=== PATIENT | female | born 1940 | race African-American/Black ===

== ENCOUNTER 2017-03-19 11:56 | Inpatient (IN) | payer MEDICARE ==
--- NOTE | ~2017-03-19 | EGD ---
EGD REPORT [facility] [address] [place]. [address] NAME: NENA VINCENT : 42 STATUS : ADM IN PAT#: [id number] AGE: 77 ADM/REG DATE : 03/19/17 MR#: [id number] REPORT SERV DATE: 03/22/17 DICTATED BY: SUNDAR AUGUSTINE DATE: 03/22/17 REPORT STATUS : Draft [facility]ANS[facility]ED [facility]: [facility] DATE: 03/22/17 Endoscopy Center Patient Name: Nena Vincent Date of : 1940 Attending MD: SUNDAR AUUGSTINE MD Procedure Date No Time: 03/22/2017 Procedure: Upper EUS Indications: Common bile duct dilation (acquired) seen on MRCP, Suspected mass in pancreas on MRCP Referring MD: RAZA BOWEN Medicines: Monitored Anesthesia Care Complications: No immediate complications. Estimated blood loss: None. Procedure: Pre-Anesthesia Assessment: - ASA Grade Assessment: III - A patient with severe systemic disease. After obtaining informed consent, the endoscope was passed under direct vision. Throughout the procedure, the patient's blood pressure, pulse, and oxygen saturations were monitored continuously. The Endoscope was introduced through the mouth, and advanced to the third part of duodenum. The upper EUS was accomplished without difficulty. The patient tolerated the procedure well. Findings: Endosonographic Finding : There was no sign of significant endosonographic abnormality in the ampulla. No masses were identified. The ampulla was endoscopically normal. There was no sign of significant endosonographic abnormality in the entire pancreas. No pathologic lymphadenopathy, no masses, no cysts, no calcifications, the pancreatic duct was well visualized from ampulla to tail, and while it was prominent and somewhat irregular, the size was 3 mm in maximal dimension and was not technically dilated. Moderate hyperechoic material consistent with sludge was visualized endosonographically in the common bile duct with layering above the level of the cystic duct takeoff. There was no mass causing obstruction. Extensive hyperechoic material consistent with sludge was visualized endosonographically in the gallbladder. No lymphadenopathy seen. Endosonographic imaging of the visualized portion of the liver showed no mass. A limited doppler examination was performed and revealed no significant vascular abnormalities. EGD REPORT [place] [id number] [place]. [address] NAME: NENA VINCENT : 42 STATUS : ADM IN PAT#: [id number] AGE: 77 ADM/REG DATE : 03/19/17 MR#: [id number] REPORT SERV DATE: 03/22/17 DICTATED BY: SUNDAR AUGUSTINE DATE: 03/22/17 REPORT STATUS : Draft TRANSCRIBED BY: [employer] DATE: 03/22/17 Impression: - There was no sign of significant pathology in the ampulla. - There was no sign of significant pathology in the entire pancreas. - Hyperechoic material consistent with sludge was visualized endosonographically in the common bile duct. - Hyperechoic material consistent with sludge was visualized endosonographically in the gallbladder. - There was no mass seen causing obstruction of the CBD or PD. - A limited doppler examination was performed and revealed no significant vascular abnormalities. Recommendation: - [facility] patient to [facility] for [facility]. - Perform an ERCP at the next available appointment. Procedure Code(s): --- Professional --- 23810, Esophagogastroduodenoscopy, flexible, transoral; with endoscopic ultrasound examination, including the esophagus, stomach, and either the duodenum or a surgically altered stomach where the jejunum is examined distal to the anastomosis Diagnosis Code(s): --- Professional --- K83.8, Other specified diseases of biliary tract R93.3, Abnormal findings on diagnostic imaging of other parts of digestive tract CPT copyright 2013 [employer]. All rights reserved. The codes documented in this report are preliminary and upon geodetic surveyor review may be revised to meet current compliance requirements. Sundar Augustine MD SUNDAR AUGUSTINE MD 03/22/2017 3:57 PM This report has been signed electronically. Number of Addenda: 0 Note Initiated On: 03/22/2017 2:46 PM Scope Withdrawal Time 0 hours 0 minutes 0 seconds [address] [place] [address]
--- NOTE | ~2017-03-19 | OP ---
Record Of Operation [facility] [address] [place]. [address] NAME: JEMIMA PASTRANA : 42 STATUS : ADM IN [facility]#: [id number] AGE: 77 ADM/REG DATE : 03/19/17 MR#: [id number] REPORT SERV DATE: 03/23/17 DICTATED BY: SINGH CAPPS DATE: 03/23/17 REPORT STATUS : Draft TRANSCRIBED BY: MODL DATE: 03/23/17 DATE OF PROCEDURE: 03/23/2017 PROCEDURES: ERCP, sphincterotomy, brush cytology, and stent placement. INDICATION: The patient with obstructive jaundice. ENDOSCOPIST: Singh Capps M.D. PREMEDICATION: Given by the anesthesiologist. Please refer to their notes. DESCRIPTION OF PROCEDURE: After obtaining informed consent, the patient was sedated and intubated to protect the airway. Olympus duodenoscope was introduced into the oropharynx, was advanced under visual guidance into the esophagus, stomach, and duodenum. The stomach was very distended, much effort was put into advancing the scope into the second portion of duodenum. Papilla appeared grossly normal. No bile was seen flowing out. Using an Autotome and guidewire, multiple attempts were made to cannulate the common bile duct. However, this failed. After much time spent, decision was made to perform a needle knife sphincterotomy. Needle knife sphincterotomy was performed successfully. Bile was seen flowing out. This was used as indication to use an Autotome to cannulate the common bile duct. This time around, common bile duct was cannulated using the guide wire. Injection of contrast showed markedly dilated common bile duct. No filling defects were noted. In the mid common bile duct, there was a stricture approximately 5 cm long with dilatation proximal to the stricture and dilatation distal to the stricture. The common bile duct proximal to the stricture approximated diameter approximately 1.2 to 1.3 cm. The bile duct distal to the stricture was dilated to approximately 1 cm. At this point, brush cytology was performed, obtaining cells from the stricture. This was followed by balloon obstructive cholangiogram which once again revealed dilated intrahepatic duct, common hepatic duct, proximal common bile duct, a stricture in the mid common bile duct and a slight dilatation distal to the stricture in the distal common bile duct. At this point, decision was made to put a 10-Venezuelan, 9 cm biliary stent across the stricture. The stent was successfully placed and confirmed with fluoroscopic studies. Bile was seen flowing out through the stent into the intestine. HP/MODL Singh Capps M.D. / [id number] CC: MD Kenya Sainz M.D.
--- NOTE | ~2017-03-19 | HP ---
History And Physical [place] [id number] [facility] [place]. [address] NAME: JEMIMA VINCENT : 42 STATUS : ADM IN [facility]#: [id number] AGE: 77 ADM/REG DATE : 03/19/17 MR#: [id number] REPORT SERV DATE: 03/19/17 DICTATED BY: RUTH PERERA DATE: 03/19/17 REPORT STATUS : Draft TRANSCRIBED BY: MODL DATE: 03/19/17 DATE OF ADMISSION: 03/19/2017 REASON FOR ADMISSION: Obstructive jaundice. HISTORY OF PRESENT ILLNESS: Ms. Vincent is a 77-year-old female with a history of diabetes, who presented to her primary care provider's office with a two-week history of itching as well as dark urine and light stools. The patient was found to be jaundice. Liver function enzymes were highly elevated. She had an ultrasound done as an outpatient which was positive for dilated common bile duct, intrahepatic duct. A CT of the abdomen was also done, which revealed a 2 cm cubed mass at the distal bile duct concerning for a neoplasm. We were asked to admit. At admission, the patient denies any abdominal pain. She has noticed, however, a decreased appetite and a 10-pound weight loss. She has had nausea without vomiting and some mild loose stool. The patient denies headache. No chest pain. No leg pain. She does have chronic palpitations. No change from baseline. Glucose have been okay at home. She denies rash, but continues to itch. Has had easy bruising, but no bleeding, no neurological complaints. She has had arthritic pains and occasional shooting pains into her hand. REVIEW OF SYSTEMS: Remainder of the review of systems are negative. PAST MEDICAL HISTORY: As mentioned above. MEDICATIONS: Glipizide, Nexium, Tenormin, and metformin. ALLERGIES: NO ALLERGIES. FAMILY HISTORY: Positive for diabetes. SOCIAL HISTORY: The patient has no tobacco, alcohol, or drug history. PHYSICAL EXAMINATION: VITAL SIGNS: On presentation, blood pressure 156/84, pulse 58, respirations 16, afebrile, saturation 98%. GENERAL: Awake, alert, and oriented x3. HEENT: Very jaundice with significant scleral and conjunctival icterus as well as sublingual icterus. She had moist mucous membranes. Normal oropharynx and no cranial nerve deficits. NECK: Revealed flat jugular veins. No carotid bruit, lymphadenopathy, or goiter. CARDIAC: Regular rate and rhythm. No murmurs, gallops, or rubs. LUNGS: Clear to auscultation bilaterally. Good excursion. ABDOMEN: Nondistended, nontender. Bowel sounds normoactive. There was no organomegaly nor stigmata of chronic liver disease. EXTREMITIES: No cyanosis, clubbing, or edema. Good pulses and capillary refill. Yellow nail beds were noted. History And Physical [address] [address] NAME: JEMIMA VINCENT : 42 STATUS : ADM IN [facility]#: [id number] AGE: 77 ADM/REG DATE : 03/19/17 MR#: [id number] REPORT SERV DATE: 03/19/17 DICTATED BY: RUTH PERERA DATE: 03/19/17 REPORT STATUS : Draft TRANSCRIBED BY: DAVID DATE: 03/19/17 SKIN: Warm and dry. PSYCHIATRIC: She is appropriate. LABORATORY EVALUATION: Sodium 137, potassium 3.7, chloride 106, bicarb 24, BUN 25, creatinine 1.2, glucose 121. LFTs remarkable for total bilirubin of 12.9, alkaline phosphatase 403, ALT 253, AST 166, amylase 132, lipase 344. A CEA was drawn which was negative. CA-19-9 slightly above the upper limit, normal of 74. Ammonia negative. Hepatitis serologies were negative. White count 6000, H and H are 12/37, platelets 304. Imaging was as mentioned above. ASSESSMENT AND PLAN: 1. 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 No evidence of distant lymphadenopathy or metastases were identified on a 4-phase CT. She may be a Whipple candidate even if positive for malignant cells. That said, we are reassured by the normal CEA and low levels of CA-19- 9. GI will be consulted for ERCP with anticipated stenting of the common bile duct as well as endoscopic ultrasound with biopsy to rule out malignancy and arrange a future treatment plan. 2. Type 2 diabetes, currently controlled. Holding glipizide and metformin in the setting of acute liver injury. 3. Elevated blood pressure, history of hypertension. We will follow for now. 4. Weight loss. Certainly concerning for malignancy. ARSEN/DAVID Ruth Perera M.D. / [id number] CC: Evelin Desai M.D.
--- NOTE | ~2017-03-19 | DS ---
Discharge Summary [place] [address] [place]. [address] NAME: JEMIMA PASTRANA : 42 STATUS : DIS IN PAT#: [id number] AGE: 77 ADM/REG DATE : 03/19/17 MR#: [id number] REPORT SERV DATE: 03/26/17 DICTATED BY: JR. LIVINGSTON WILLIAM JOHN DATE: 03/25/17 REPORT STATUS : Draft TRANSCRIBED BY: MODL DATE: 03/25/17 ADMISSION DATE: 03/19/2017 DISCHARGE DATE: 03/25/2017 DISCHARGE DIAGNOSES: Include: 1. 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 2. Non-insulin requiring diabetes mellitus type 2. 3. Hypertension. OPERATIONS, PROCEDURES, AND TREATMENTS: Include: 1. MRCP done 03/21/2017 which showed sharp cut off of the common hepatic duct at the level of the pancreatic head compatible with obstructing mass. Given the dilation of the main pancreatic duct, it is suspected this could represent a primary pancreatic neoplasm. 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 2. Upper endoscopy with endoscopic ultrasound done 03/22/[address] Campos showed no sign of significant endosonographic abnormality of the ampulla. No masses were identified. The ampulla was endoscopically normal. There was no sign of significant endosonographic abnormality in the entirety of the pancreas. No pathologic lymphadenopathy, masses, or calcification. Pancreatic duct was well visualized from the ampulla to the tail. It was prominent and somewhat irregular with 3 mm size in maximal dimension. There is moderate hyperechoic material consistent with sludge in the common bile duct with layering above the level of the cystic duct takeoff. There is no mass causing obstruction. There was extensive hyperechoic material consistent with sludge in the gallbladder. 3. ERCP done by Dr. Capps on 03/23/2017 with sphincterotomy, brush cytology, and stent placement. On the ERCP, there was markedly dilated common bile duct without filling defect. In the mid common bile duct, there was a stricture approximately 5 mm long with dilation proximal to the stricture and dilation distal to the stricture. [place] cytology was performed followed by dilation and stent placement across the stricture. CONSULTING PHYSICIANS: 1. Singh Capps MD. 2. Sundar Campos MD. 3. Kenzie Campuzano MD. DISCHARGE MEDICATIONS: Include: 1. Atenolol 25 mg in the morning, 50 mg at night. 2. Metformin 500 mg twice a day. 3. Glipizide XL 5 mg twice a day. 4. Hydroxyzine 25 mg t.i.d. p.r.n. 5. Lubricating eye drops p.r.n.. HOSPITAL COURSE: The patient is a 77-year-old female who was sent from her primary care physician's office on 03/19/2017 after a 2-week history of itching, dark urine, and light-colored stools. Ultrasound done as an outpatient was positive for dilated common Discharge Summary [place] [address] [place]. [address] NAME: JEMIMA PASTRANA : 42 STATUS : DIS IN PAT#: [id number] AGE: 77 ADM/REG DATE : 03/19/17 MR#: [id number] REPORT SERV DATE: 03/26/17 DICTATED BY: JR. LIVINGSTON WILLIAM JOHN DATE: 03/25/17 REPORT STATUS : Draft TRANSCRIBED BY: DAVID DATE: 03/25/[address] abdomen and pelvis showed a 2 cm cubed mass at the distal common bile duct concerning for neoplasm. There was no abdominal pain. She did have a decreased appetite and 10-pound weight loss. On initial exam, blood pressure is 156/84, heart rate 58, respiratory rate of 16, temperature was normal. Exam was remarkable for scleral icterus and profound jaundice. Abdominal exam was unremarkable with no mass palpated. Initial laboratory was significant for a BUN of 25, creatinine 1.2. LFT showed a total bilirubin of 12.9, alkaline phosphatase 403, ALT of 253, AST of 166, lipase of 344. CA-19-9 was slightly above normal at 74 and CEA was normal. Hepatic serologies were negative. The patient was admitted to the hospital for painless jaundice. She was treated with IV fluids and underwent an MRCP with details as above. She was seen in consultation by Gastroenterology and underwent an endoscopic ultrasound as above. The endoscopic ultrasound did not show evidence of mass, but did show ductal dilation. The patient was then seen in consultation by Dr. Capps and underwent ERCP with findings as above. Following the procedure, the patient did well. Her diet was reintroduced. She tolerated regular diet without difficulty and her liver function enzymes all trended downward. At discharge, total bilirubin is 7.1, alkaline phosphatase is 323, AST of 65, ALT of 119. The patient was felt to be stable for discharge by Gastroenterology. The plan is for the patient to follow up with Gastroenterology who will refer her to [facility] for a biliary endoscopy. The remainder of the patient's health problems were stable throughout the hospitalization and were not addressed. For discharge exam and laboratory, please see daily progress note. DISCHARGE DIET: Regular. ACTIVITY: As tolerated. I have held her aspirin until seen by Gastroenterology in anticipation of biliary endoscopy. This discharge took greater than 30 minutes for patient encounter, coordination of care, and documentation. DICTATED BY: Sundar Livingston Jr, MD WINDIGO/DAVID Sundar Livingston Jr, MD / [id number] CC: Sundar Livingston Jr, MD Discharge Summary [address] [address] NAME: JEMIMA PASTRANA : 42 STATUS : DIS IN PAT#: [id number] AGE: 77 ADM/REG DATE : 03/19/17 MR#: [id number] REPORT SERV DATE: 03/26/17 DICTATED BY: JR. LIVINGSTON WILLIAM JOHN DATE: 03/25/17 REPORT STATUS : Draft TRANSCRIBED BY: DAVID DATE: 03/25/17 Kenya Marie M.D.
--- NOTE | ~2017-03-19 | CN ---
Consultation Report [facility] [address] [place]. [address] NAME: JEMIMA VINCENT : 42 STATUS : ADM IN PAT#: [id number] AGE: 77 ADM/REG DATE : 03/19/17 MR#: [id number] REPORT SERV DATE: 03/21/17 DICTATED BY: FRANK CAMPUZANO DATE: 03/21/17 REPORT STATUS : Draft TRANSCRIBED BY: MODL DATE: 03/21/17 GI CONSULTATION DATE OF CONSULTATION: 03/20/2017 REASON FOR CONSULTATION: Abnormal CT scan, elevated liver enzymes. HISTORY OF PRESENT ILLNESS: Ms. Vincent is a pleasant 77-year-old black female who initially presented to [facility] with abdominal pain, nausea, decreased appetite, and was found to have elevated liver enzymes with a bilirubin 12.9; AST 166; ALT 253; alkaline phosphatase 403; lipase 344, now 74. Ultrasound was initially performed, which showed dilated intra and extrahepatic biliary ducts, gallstones, and sludge within the gallbladder without any evidence of cholecystitis. She also was noted to have fatty liver. CT scan was also subsequently performed, which showed that the distal aspect of the common bile duct was patent at the ampulla, but there was stricturing and complete loss of the lumen of the bile duct through the pancreatic head, measuring 2 cm in length. Her bilirubin had gone up from 11.4 to 12.9. PHYSICAL EXAMINATION: VITAL SIGNS: Patient is afebrile. Her vital signs are stable. GENERAL: The patient is awake, alert, and oriented, well developed, well nourished, in no acute distress. HEENT: Atraumatic, normocephalic. No scleral icterus. Mucous membranes moist. CARDIAC: S1, S2. CHEST: Clear. ABDOMEN: Soft, tender to palpation diffusely, but mostly in the epigastrium and right side of her abdomen. No rebound or guarding. Bowel sounds normoactive. LABORATORY DATA: Reviewed and as above. CT scan and ultrasound also reviewed as above. IMPRESSION AND PLAN: Biliary dilatation concerning for possible pancreatic head mass given the CT scan, but unclear. We will go ahead and order an MRCP for further evaluation and need for ERCP versus endoscopic ultrasound. I discussed the above with the patient and her son, who was at her bedside. Questions and concerns were addressed. We will continue to follow with you. CONOR/DAVID Frank Campuzano MD / [id number] Consultation Report [place] [address] [place]. [address] NAME: JEMIMA VINCENT : 42 STATUS : ADM IN PAT#: [id number] AGE: 77 ADM/REG DATE : 03/19/17 MR#: [id number] REPORT SERV DATE: 03/21/17 DICTATED BY: FRANK CAMPUZANO DATE: 03/21/17 REPORT STATUS : Draft TRANSCRIBED BY: DAVID DATE: 03/21/17 CC: MD Kenya Sainz M.D.
[~2017-03-19 11:56] MED LIST: ACTOS45 PO; ATEN25 PO; ATEN50 PO; GLUCOPHXR PO; GLUCXL5 PO; NEXIUM40 PO
[2017-03-19] MEDS ORDERED: FORTAMET500 MG PO (15:20)
[2017-03-19] MEDS ORDERED: GLUCXL5 PO (15:21)
[2017-03-19] MEDS ORDERED: ATEN25 PO (15:21)
[2017-03-19] MEDS ORDERED: HALF81 PO (15:22)
[2017-03-19] MEDS ORDERED: ATEN50 PO (15:22)
[2017-03-19] MEDS ORDERED: AT25 PO (15:22)
[2017-03-19] MEDS ORDERED: SYSTANE ULTR OPH (15:25)
[2017-03-19 16:01] LABS: BASOPHILS 0.5 %; BASOPHILS ABSOLUTE 0.03 10/3/uL (0.0-0.16); EOSINOPHILS ABSOLUTE 0.06 10/3/uL (0.0-0.53); HEMATOCRIT 37.2 % (36.0-48.0); HEMOGLOBIN 12.8 g/dL (12.0-16.0); IMMATURE GRANULOCYTES 0.3 %; IMMATURE GRANULOCYTES ABSOLUTE 0.02 10/3/uL (0.0-0.11); LYMPHOCYTES 25.3 %; LYMPHOCYTES ABSOLUTE 1.48 10/3/uL (0.67-4.30); MEAN CORPUS HGB CONC 34.4 g/dL (32.0-36.0); MEAN CORPUSCULAR HEMOGLOB 28.6 pg (26.0-34.0); MONOCYTES 7.4 %; MONOCYTES ABSOLUTE 0.43 10/3/uL (0.21-1.20); NEUTROPHILS 65.5 %; NEUTROPHILS ABSOLUTE 3.82 10/3/uL (2.02-8.40); PLATELET COUNT 304 10/3/uL (150-400); RBC DISTRIBUTION WIDTH 15.4 % (12.0-16.0); RED CELL COUNT 4.48 10/6/uL (4.0-5.6); WHITE BLOOD CELLS 5.8 10/3/uL (4.5-10.5)
[2017-03-19 16:02] LABS: MANUAL DIFF NO %
[2017-03-19 16:15] LABS: PARTIAL THROMBO TIME 25.6 SEC (22.5-37.2); PROTIME (NOT ORD) 13.4 SEC (12.0-14.5)
[2017-03-19 16:26] LABS: A/G RATIO 0.7 (0.7-1.9); ALBUMIN 3.1 G/DL (3.5-5.0); CA-19-9 74.1 U/ML (< 37.0); CALCIUM, SERUM 9.3 MG/DL (8.5-10.4); CHLORIDE, SERUM 106 MMOL/L (96-112); CO2 (CARBON DIOXIDE) 24 MMOL/L (24-34); CREATININE 1.18 MG/DL (0.55-1.02); GFR AFRICAN AMERICAN 52 ML/MIN (>=60); GFR NON AFRICAN AMERICAN 45 ML/MIN (>=60); GLOBULIN 4.5 G/DL (2.5-4.1); PHOSPHORUS, SERUM 3.9 MG/DL (2.5-4.5); POTASSIUM, SERUM 3.7 MMOL/L (3.5-5.3); SGPT(ALT) 253 U/L (5-65); SODIUM, SERUM 137 MMOL/L (135-148); TOTAL PROTEIN 7.6 G/DL (6.0-8.5)
[2017-03-19 16:28] LABS: ALKALINE PHOSPHATASE 403 U/L (45-117); BUN (BLOOD UREA NITROGEN) 25 MG/DL (6-23); CEA 1.3 NG/ML; GLUCOSE, SERUM 121 MG/DL (60-99); TOTAL BILIRUBIN 12.9 MG/DL (0-1.2)
[2017-03-19 16:29] LABS: SGOT(AST) 166 U/L (5-40)
[2017-03-20 07:05] LABS: CALCIUM, SERUM 8.7 MG/DL (8.5-10.4); CHLORIDE, SERUM 107 MMOL/L (96-112); CO2 (CARBON DIOXIDE) 23 MMOL/L (24-34); CREATININE 0.74 MG/DL (0.55-1.02); GFR AFRICAN AMERICAN 91 ML/MIN (>=60); GFR NON AFRICAN AMERICAN 79 ML/MIN (>=60); POTASSIUM, SERUM 3.3 MMOL/L (3.5-5.3); SGPT(ALT) 191 U/L (5-65); SODIUM, SERUM 142 MMOL/L (135-148)
[2017-03-20 07:06] LABS: A/G RATIO 0.7 (0.7-1.9); ALBUMIN 2.4 G/DL (3.5-5.0); ALKALINE PHOSPHATASE 315 U/L (45-117); BUN (BLOOD UREA NITROGEN) 16 MG/DL (6-23); GLOBULIN 3.3 G/DL (2.5-4.1); GLUCOSE, SERUM 159 MG/DL (60-99); SGOT(AST) 151 U/L (5-40); TOTAL BILIRUBIN 11.4 MG/DL (0-1.2); TOTAL PROTEIN 5.7 G/DL (6.0-8.5)
[2017-03-21 05:51] LABS: BASOPHILS 0.7 %; BASOPHILS ABSOLUTE 0.03 10/3/uL (0.0-0.16); EOSINOPHILS 3.3 %; EOSINOPHILS ABSOLUTE 0.15 10/3/uL (0.0-0.53); HEMATOCRIT 31.5 % (36.0-48.0); HEMOGLOBIN 10.8 g/dL (12.0-16.0); IMMATURE GRANULOCYTES 0.2 %; IMMATURE GRANULOCYTES ABSOLUTE 0.01 10/3/uL (0.0-0.11); LYMPHOCYTES 24.9 %; LYMPHOCYTES ABSOLUTE 1.14 10/3/uL (0.67-4.30); MANUAL DIFF NO %; MEAN CORPUS HGB CONC 34.3 g/dL (32.0-36.0); MEAN CORPUSCULAR HEMOGLOB 28.1 pg (26.0-34.0); MEAN PLATELET VOLUME 10.6 fL (9.2-13.0); MONOCYTES 10.9 %; NEUTROPHILS ABSOLUTE 2.74 10/3/uL (2.02-8.40); PLATELET COUNT 270 10/3/uL (150-400); RBC DISTRIBUTION WIDTH 15.8 % (12.0-16.0); RED CELL COUNT 3.84 10/6/uL (4.0-5.6); WHITE BLOOD CELLS 4.6 10/3/uL (4.5-10.5)
[2017-03-21 06:12] LABS: ALBUMIN 2.5 G/DL (3.5-5.0); BUN (BLOOD UREA NITROGEN) 5 MG/DL (6-23); CALCIUM, SERUM 8.8 MG/DL (8.5-10.4); CHLORIDE, SERUM 108 MMOL/L (96-112); CO2 (CARBON DIOXIDE) 26 MMOL/L (24-34); CREATININE 0.67 MG/DL (0.55-1.02); GFR AFRICAN AMERICAN 99 ML/MIN (>=60); GFR NON AFRICAN AMERICAN 85 ML/MIN (>=60); GLUCOSE, SERUM 227 MG/DL (60-99); PHOSPHORUS, SERUM 1.8 MG/DL (2.5-4.5); POTASSIUM, SERUM 4.4 MMOL/L (3.5-5.3); SODIUM, SERUM 141 MMOL/L (135-148)
[2017-03-22 06:05] LABS: BASOPHILS 0.3 %; BASOPHILS ABSOLUTE 0.02 10/3/uL (0.0-0.16); EOSINOPHILS 0.7 %; EOSINOPHILS ABSOLUTE 0.05 10/3/uL (0.0-0.53); HEMATOCRIT 32.6 % (36.0-48.0); HEMOGLOBIN 11.2 g/dL (12.0-16.0); IMMATURE GRANULOCYTES 0.3 %; IMMATURE GRANULOCYTES ABSOLUTE 0.02 10/3/uL (0.0-0.11); LYMPHOCYTES 10.9 %; MEAN CORPUS HGB CONC 34.4 g/dL (32.0-36.0); MEAN CORPUSCULAR HEMOGLOB 27.9 pg (26.0-34.0); MEAN CORPUSCULAR VOLUME 81.3 fL (80-100); MEAN PLATELET VOLUME 11.2 fL (9.2-13.0); MONOCYTES 5.6 %; MONOCYTES ABSOLUTE 0.41 10/3/uL (0.21-1.20); NEUTROPHILS 82.2 %; NEUTROPHILS ABSOLUTE 6.06 10/3/uL (2.02-8.40); PLATELET COUNT 313 10/3/uL (150-400); RBC DISTRIBUTION WIDTH 15.9 % (12.0-16.0); RED CELL COUNT 4.01 10/6/uL (4.0-5.6)
[2017-03-22 06:06] LABS: MANUAL DIFF NO %; WHITE BLOOD CELLS 7.4 10/3/uL (4.5-10.5)
[2017-03-22 06:22] LABS: A/G RATIO 0.7 (0.7-1.9); ALBUMIN 2.7 G/DL (3.5-5.0); BUN (BLOOD UREA NITROGEN) 5 MG/DL (6-23); CHLORIDE, SERUM 102 MMOL/L (96-112); CO2 (CARBON DIOXIDE) 22 MMOL/L (24-34); CREATININE 0.97 MG/DL (0.55-1.02); GFR AFRICAN AMERICAN 66 ML/MIN (>=60); GFR NON AFRICAN AMERICAN 57 ML/MIN (>=60); GLOBULIN 3.9 G/DL (2.5-4.1); POTASSIUM, SERUM 4.4 MMOL/L (3.5-5.3); SGPT(ALT) 200 U/L (5-65); TOTAL PROTEIN 6.6 G/DL (6.0-8.5)
[2017-03-22 06:23] LABS: ALKALINE PHOSPHATASE 362 U/L (45-117); GLUCOSE, SERUM 317 MG/DL (60-99); SODIUM, SERUM 134 MMOL/L (135-148); TOTAL BILIRUBIN 14.2 MG/DL (0-1.2)
[2017-03-22 06:24] LABS: SGOT(AST) 154 U/L (5-40)
[2017-03-23 07:14] LABS: BASOPHILS 0.6 %; BASOPHILS ABSOLUTE 0.03 10/3/uL (0.0-0.16); EOSINOPHILS 2.7 %; EOSINOPHILS ABSOLUTE 0.14 10/3/uL (0.0-0.53); HEMATOCRIT 33.2 % (36.0-48.0); HEMOGLOBIN 11.2 g/dL (12.0-16.0); IMMATURE GRANULOCYTES 0.4 %; IMMATURE GRANULOCYTES ABSOLUTE 0.02 10/3/uL (0.0-0.11); LYMPHOCYTES 24.9 %; MEAN CORPUS HGB CONC 33.7 g/dL (32.0-36.0); MEAN CORPUSCULAR HEMOGLOB 27.4 pg (26.0-34.0); MEAN CORPUSCULAR VOLUME 81.2 fL (80-100); MEAN PLATELET VOLUME 11.2 fL (9.2-13.0); MONOCYTES 8.2 %; MONOCYTES ABSOLUTE 0.43 10/3/uL (0.21-1.20); NEUTROPHILS 63.2 %; PLATELET COUNT 309 10/3/uL (150-400); RBC DISTRIBUTION WIDTH 16.2 % (12.0-16.0); RED CELL COUNT 4.09 10/6/uL (4.0-5.6); WHITE BLOOD CELLS 5.2 10/3/uL (4.5-10.5)
[2017-03-23 07:15] LABS: MANUAL DIFF NO %
[2017-03-23 07:30] LABS: A/G RATIO 0.7 (0.7-1.9); ALBUMIN 2.5 G/DL (3.5-5.0); BUN (BLOOD UREA NITROGEN) 10 MG/DL (6-23); CALCIUM, SERUM 8.7 MG/DL (8.5-10.4); CHLORIDE, SERUM 102 MMOL/L (96-112); CO2 (CARBON DIOXIDE) 25 MMOL/L (24-34); CREATININE 0.96 MG/DL (0.55-1.02); GFR AFRICAN AMERICAN 67 ML/MIN (>=60); GFR NON AFRICAN AMERICAN 57 ML/MIN (>=60); GLOBULIN 3.7 G/DL (2.5-4.1); GLUCOSE, SERUM 269 MG/DL (60-99); POTASSIUM, SERUM 4.1 MMOL/L (3.5-5.3); SGOT(AST) 130 U/L (5-40); SGPT(ALT) 179 U/L (5-65); SODIUM, SERUM 134 MMOL/L (135-148); TOTAL PROTEIN 6.2 G/DL (6.0-8.5)
[2017-03-23 07:31] LABS: TOTAL BILIRUBIN 13.4 MG/DL (0-1.2)
[2017-03-23 07:46] LABS: ALKALINE PHOSPHATASE 338 U/L (45-117)
[2017-03-24 09:26] LABS: BASOPHILS 0.5 %; BASOPHILS ABSOLUTE 0.04 10/3/uL (0.0-0.16); EOSINOPHILS 1.9 %; EOSINOPHILS ABSOLUTE 0.15 10/3/uL (0.0-0.53); HEMATOCRIT 31.3 % (36.0-48.0); HEMOGLOBIN 10.9 g/dL (12.0-16.0); IMMATURE GRANULOCYTES 0.4 %; IMMATURE GRANULOCYTES ABSOLUTE 0.03 10/3/uL (0.0-0.11); LYMPHOCYTES 16.6 %; LYMPHOCYTES ABSOLUTE 1.29 10/3/uL (0.67-4.30); MEAN CORPUS HGB CONC 34.8 g/dL (32.0-36.0); MEAN CORPUSCULAR HEMOGLOB 28.5 pg (26.0-34.0); MEAN CORPUSCULAR VOLUME 81.9 fL (80-100); MEAN PLATELET VOLUME 11.4 fL (9.2-13.0); MONOCYTES 8.6 %; MONOCYTES ABSOLUTE 0.67 10/3/uL (0.21-1.20); NEUTROPHILS ABSOLUTE 5.58 10/3/uL (2.02-8.40); PLATELET COUNT 310 10/3/uL (150-400); RBC DISTRIBUTION WIDTH 16.5 % (12.0-16.0); RED CELL COUNT 3.82 10/6/uL (4.0-5.6); WHITE BLOOD CELLS 7.8 10/3/uL (4.5-10.5)
[2017-03-24 09:27] LABS: MANUAL DIFF NO %
[2017-03-24 09:41] LABS: A/G RATIO 0.6 (0.7-1.9); ALBUMIN 2.3 G/DL (3.5-5.0); ALKALINE PHOSPHATASE 338 U/L (45-117); BUN (BLOOD UREA NITROGEN) 11 MG/DL (6-23); CALCIUM, SERUM 8.6 MG/DL (8.5-10.4); CHLORIDE, SERUM 102 MMOL/L (96-112); CO2 (CARBON DIOXIDE) 26 MMOL/L (24-34); CREATININE 0.74 MG/DL (0.55-1.02); GFR AFRICAN AMERICAN 91 ML/MIN (>=60); GFR NON AFRICAN AMERICAN 79 ML/MIN (>=60); GLOBULIN 3.7 G/DL (2.5-4.1); SGOT(AST) 96 U/L (5-40); SGPT(ALT) 145 U/L (5-65); SODIUM, SERUM 136 MMOL/L (135-148)
[2017-03-24 09:43] LABS: GLUCOSE, SERUM 116 MG/DL (60-99); TOTAL BILIRUBIN 9.9 MG/DL (0-1.2)
[2017-03-25 06:39] LABS: A/G RATIO 0.7 (0.7-1.9); ALBUMIN 2.4 G/DL (3.5-5.0); ALKALINE PHOSPHATASE 323 U/L (45-117); BUN (BLOOD UREA NITROGEN) 12 MG/DL (6-23); CALCIUM, SERUM 8.5 MG/DL (8.5-10.4); CHLORIDE, SERUM 103 MMOL/L (96-112); CO2 (CARBON DIOXIDE) 25 MMOL/L (24-34); CREATININE 0.74 MG/DL (0.55-1.02); GFR AFRICAN AMERICAN 91 ML/MIN (>=60); GFR NON AFRICAN AMERICAN 79 ML/MIN (>=60); GLOBULIN 3.5 G/DL (2.5-4.1); GLUCOSE, SERUM 109 MG/DL (60-99); POTASSIUM, SERUM 3.7 MMOL/L (3.5-5.3); SGOT(AST) 65 U/L (5-40); SGPT(ALT) 119 U/L (5-65); SODIUM, SERUM 135 MMOL/L (135-148); TOTAL BILIRUBIN 7.1 MG/DL (0-1.2); TOTAL PROTEIN 5.9 G/DL (6.0-8.5)
[2017-05-23] MEDS ORDERED: ZYRTEC ALLGY10 MG PO (05:41)
[2017-06-28] MEDS ORDERED: ATEN50 PO (19:23)
[2017-06-28] MEDS ORDERED: GLUCXL5 PO (19:24)
[2017-06-28] MEDS ORDERED: LIPITOR40 PO (19:26)
[2017-06-28] MEDS ORDERED: FORTAMET500 MG PO (19:26)
[2017-06-28] MEDS ORDERED: XARELTO20 MG PO (19:26)
[2017-06-28] MEDS ORDERED: MEGACEUDL PO (19:27)
[2017-06-28] MEDS ORDERED: SYSTANE ULTR OPH (19:28)
[2017-06-28] MEDS ORDERED: ZYRTEC ALLGY10 MG PO (19:28)
[2017-06-28] MEDS ORDERED: CHEMOTHERAPY IV (19:29)
[2017-06-28] MEDS ORDERED: [UNRECOGNIZED DRUG - OTHER] PO (19:31)
[2017-07-07] MEDS ORDERED: PROTONIX PO (13:26)
[2017-07-07] MEDS ORDERED: LEVAQUIN750 MG PO (13:27)
[2017-07-07] MEDS ORDERED: FLORASTOR250 MG PO (13:28)
[2017-07-09] MEDS ORDERED: AT25 PO (05:22)
[2017-07-09] MEDS ORDERED: MCZ25 PO (05:23)
== END 2017-03-25 15:10 | disposition home or self-care (01) | DRG 435 ==
LOC: 1SO 11:56
PROVIDERS: Hospitalist; Internal Medicine; Internal Medicine Gastroenterology
PROC: 0DJ08ZZ Inspection of Upper Intestinal Tract, Via Natural or Artificial Opening Endoscopic (ICD-10-PCS; 2017-03-22)
PROC: 0F798DZ Dilation of Common Bile Duct with Intraluminal Device, Via Natural or Artificial Opening Endoscopic (ICD-10-PCS; principal; 2017-03-23 15:00)
PROC: 0FB98ZX Excision of Common Bile Duct, Via Natural or Artificial Opening Endoscopic, Diagnostic (ICD-10-PCS; 2017-03-23 15:00)
DX: C25.9 Malignant neoplasm of pancreas, unspecified (principal); K83.1 Obstruction of bile duct; E11.9 Type 2 diabetes mellitus without complications; K76.0 Fatty (change of) liver, not elsewhere classified; I10 Essential (primary) hypertension; D64.9 Anemia, unspecified; R63.4 Abnormal weight loss; R00.2 Palpitations; R42 Dizziness and giddiness; Z79.84 Long term (current) use of oral hypoglycemic drugs; Z79.899 Other long term (current) drug therapy
CPT/HCPCS: 74181; 74330; 80053; 80069; 82140; 82150; 82378; 82947; 82962; 83690; 83735; 84100; 84132; 85025; 85610; 85730; 86301; 88112; 93005; A9270-GY; C1725; C1769; C2625; J0360; J1200; J2405; J2710; J3010